=== PATIENT | male | born 1990 | race Two or more races ===

== ENCOUNTER 2022-03-29 20:35 | Emergency (ER) | payer BC ==
[~2022-03-29] VITALS: Ht 170.2 cm; Wt 131.5 kg
[2022-03-29 20:41] VITALS: BP_SYST 141
--- NOTE | 2022-03-29 20:43 | NUR ---
PER PATIENT, PATIENT HAS BEEN FEELING DIZZY AND NAUSEOUS FOR TWO HOURS AND TOOK HIS BLOOD SUGAR AND IT WAS OVER 400. STATES "I DIDN'T KNOW I WAS DIABETIC".
--- NOTE | 2022-03-29 21:50 | NUR ---
PATIENT BROUGHT TO BED 8 FOR EVAL, REPORT GIVEN TO CORRINA CUADRA
--- NOTE | 2022-03-29 22:00 | NUR ---
Patient presents to ED from home with c/o dizziness. Patient reports pain 0/10 at this time. Patient A/Ox4, GCS 15, VSS, ambulatory, skin warm, dry, intact, color wnl for ethnicity. Patient states "I was told by my doctor 2 months ago that I was prediabetic when I went in for a checkup. I thought it was fine but lately Lacie noticed that I'm more thristy than normal and I checked my blood sugar at work today and noticed it was really high so I decided to come in." Nad noted at this time.
--- NOTE | 2022-03-29 22:10 | NUR ---
OZ Porras at bedside.
[2022-03-29] MEDS ORDERED: NACL 0.9% 1,000 ML IV ONE ×2 (22:15→23:30)
[2022-03-29] MEDS ORDERED: ONDANSETRON HCL 4 MG/2 ML VIAL IVP ONE (22:15)
--- NOTE | 2022-03-29 22:15 | NUR ---
RT at bedside.
--- NOTE | 2022-03-29 22:22 | NUR ---
Lab at bedside.
--- NOTE | 2022-03-29 22:28 | NUR ---
Radiology at bedside.
[2022-03-29 22:48] LABS: BASOPHILS # (AUTO) 0.3 K/uL (0.0-0.2); BASOPHILS % (AUTO) 3.7 % (0.0-2.0); EOSINOPHILS # (AUTO) 0.3 K/uL (0.0-0.4); HEMATOCRIT 47.4 % (36-54); LYMPHOCYTES # (AUTO) 1.9 K/uL (1.0-5.5); LYMPHOCYTES % (AUTO) 27.9 % (20.5-51.5); MEAN CORPUSCULAR HEMOGLOBIN 29 pg (27-31); MEAN CORPUSCULAR HGB CONC 34 % (32-36); MEAN CORPUSCULAR VOLUME 87 fL (79.0-98.0); MONOCYTES # (AUTO) 0.3 K/uL (0.0-1.0); MONOCYTES % (AUTO) 4.8 % (1.7-9.3); NEUTROPHILS # (AUTO) 4.2 K/uL (1.8-7.7); NEUTROPHILS % (AUTO) 59.6 % (40.0-70.0); PLATELET COUNT (AUTO) 221 K/uL (130-430); RED BLOOD CELL COUNT(AUTO) 5.46 MIL/uL (4.2-6.2); RED CELL DISTRIBUTION WIDTH 13.4 % (9.0-15.0)
[2022-03-29 22:57] LABS: ANION GAP 5 (5-15); CALCIUM 9.3 mg/dL (8.4-11.0); CHLORIDE 100 mmol/L (98-107); CREATININE 1.01 mg/dL (0.55-1.30); GLUCOSE 399 mg/dL (70-99); POTASSIUM 3.9 mmol/L (3.5-5.1); UREA NITROGEN, BLOOD 11 mg/dL (8-21)
[2022-03-29 23:03] LABS: ALANINE AMINOTRANSFERASE 149 U/L (12-78); ALBUMIN 3.7 g/dL (3.4-4.8); ASPARTATE AMINOTRANSFERASE 104 U/L (10-37); TOTAL BILIRUBIN 0.3 mg/dL (0.0-1.0)
--- NOTE | 2022-03-29 23:13 | NUR ---
Patient resting comfortably in bed watching television with side rails raised. Patient given 2 cups of water at this time per patient request. Nad noted at this time.
[2022-03-29 23:14] LABS: GFR AFRICAN AMERICAN 111 mL/min (>90)
--- NOTE | 2022-03-29 23:23 | NUR ---
Patient's brother at bedside.
[2022-03-29 23:25] LABS: BILIRUBIN,URINE NEGATIVE (NEGATIVE); BLOOD, URINE NEGATIVE (NEGATIVE); CLARITY/URINE CLEAR (CLEAR); COLOR,URINE YELLOW (YELLOW); GLUCOSE,URINE 3+ (NEGATIVE); KETONES,URINE 1+ (NEGATIVE); LEUKOCYTE ESTERASE ,URINE NEGATIVE (NEGATIVE); NITRITE, URINE NEGATIVE (NEGATIVE); PROTEIN URINE NEGATIVE (NEGATIVE); UROBILINOGEN,URINE 0.2 (0.2-1.0)
[2022-03-29] MEDS ORDERED: INSULIN REGULAR, HUMAN 10 UNITS/0.1 ML, 3 ML VIAL IVP ONE (23:30)
[2022-03-29 23:48] LABS: ACETONE, SERUM NEGATIVE (NEGATIVE)
[2022-03-29 23:52] LABS: BACTERIA,URINE FEW /HPF (None Seen); RBC,URINE NONE SEEN /HPF (0-3); WBC,URINE 0-3 /HPF (0-3)
[2022-03-29 23:53] LABS: MUCUS,URINE None Seen /LPF (None Seen)
[2022-03-30] MEDS ORDERED: ONDA-8 TL (00:44)
[2022-03-30 00:57] VITALS: BP_SYST 141
--- NOTE | 2022-03-30 00:57 | NUR ---
Patient given written and verbal discharge instructions and verbalizes understanding. ER MD discussed with patient the results and treatment provided. Patient in stable condition. ID arm band removed. IV catheter removed intact and dressing applied, no active bleeding. Rx of Zofran given. Patient educated on pain management and to follow up with PMD. Pain Scale 0/10. Opportunity for questions provided and answered. Medication side effect fact sheet provided. Patient A/Ox4, VSS, ambulatory, resp even and unlabored. Patient accompanied by brother and in stable condition upon discharge.
== END 2022-03-30 00:57 | disposition home or self-care (01) ==
LOC: SED 20:35
DX: R74.01 Elevation of levels of liver transaminase levels (principal); E11.9 Type 2 diabetes mellitus without complications; I10 Essential (primary) hypertension; R42 Dizziness and giddiness; R11.0 Nausea; Z79.899 Other long term (current) drug therapy
CPT/HCPCS: 99285; 96374; 71045; 96361; 96375; 80053; 81000; 82009; 83930; 85025; 87040; 87086; 36415; 93005; 36600; 82803; 83036; 83605; J1815; J2405; J7030